=== PATIENT | male | born 1975 ===

== ENCOUNTER 2018-06-19 09:16 | Outpatient (CLI) | payer OTHER | END 2018-06-19 10:00 | disposition home or self-care (01) | LOC: NUCLEAR 09:16 | DX: G90.511 Complex regional pain syndrome I of right upper limb (principal); M75.101 Unspecified rotator cuff tear or rupture of right shoulder, not specified as traumatic; L89.210 Pressure ulcer of right hip, unstageable | CPT/HCPCS: 78315; A9503 ==

== ENCOUNTER 2018-08-14 07:12 | Outpatient (CLI) | payer OTHER | END 2018-08-14 17:19 | disposition home or self-care (01) | LOC: LAB 07:12 | DX: M75.120 Complete rotator cuff tear or rupture of unspecified shoulder, not specified as traumatic (principal); Z01.818 Encounter for other preprocedural examination; G90.519 Complex regional pain syndrome I of unspecified upper limb; M54.07 Panniculitis affecting regions of neck and back, lumbosacral region ==